=== PATIENT | male | born 1945 | race African-American/Black ===

== ENCOUNTER 2020-08-08 09:23 | Emergency (ER) | payer MEDICARE, MEDICAID, OTHER ==
[~2020-08-08] VITALS: Ht 195.6 cm; Wt 68.0 kg
[~2020-08-08 09:23] MED LIST: AMLO5TAB88 PO; ASPI-1406 PO; FE300LUD PO; LIP40 PO; METF500T PO
[2020-08-08] MEDS ORDERED: SODIUM CHLORIDE 0.9% 1,000 ML IV ONE (09:45)
[2020-08-08 10:12] LABS: HEMATOCRIT. 25.5 % (42.0-52.0); MEAN CORPUSCULAR HEMOGLOBIN 19.3 pg (28.0-32.0); MEAN CORPUSCULAR VOLUME 61.6 fL (80.0-94.0); MEAN PLATELET VOLUME 8.3 fl (7.4-10.4); PLATELET 301 x1000/uL (130-400); RED BLOOD CELL COUNT 4.13 mill/uL (4.7-6.1); RED CELL DISTRIBUTION WIDTH 20.2 % (11.6-14.6)
[2020-08-08 10:21] LABS: INR 1.1; PROTHROMBIN TIME 11.9 sec (9.6-11.0)
[2020-08-08 10:22] LABS: CHLORIDE 106 mEq/L (98-107)
[2020-08-08 11:44] LABS: PLATELET ESTIMATE NORMAL
[2020-08-08 17:59] VITALS: BP 126/62
== END 2020-08-08 18:39 | disposition short-term general hospital (02) ==
LOC: ER 09:23 → CANBEDREQ 18:16 → ER 18:39
DX: E86.0 Dehydration (principal); E78.00 Pure hypercholesterolemia, unspecified; E11.9 Type 2 diabetes mellitus without complications; R41.82 Altered mental status, unspecified
CPT/HCPCS: 36415; 70450; 71045; 80053; 83605; 84145; 84484; 85025; 85610; 87040; 93005; 96360; 99285; J7030